=== PATIENT | female | born 1950 | race African-American/Black ===

== ENCOUNTER 2017-11-16 19:29 | Emergency (ER) | payer MEDICARE ==
[~2017-11-16] VITALS: Ht 165.1 cm; Wt 105.0 kg
[2017-11-16 19:31] VITALS: BP 178/81; PULSE 97; RESP 18; TEMP 98.1; O2SAT 97
[2017-11-16] MEDS ORDERED: METO25TA3 PO (20:25)
[2017-11-16] MEDS ORDERED: LISI10TA3 PO (20:25)
[2017-11-16] MEDS ORDERED: PLAV75TA29 PO (20:25)
[2017-11-16] MEDS ORDERED: ROSU1TAB8 PO (20:25)
[2017-11-16] MEDS ORDERED: KETOROLAC TROMETHAMINE 60 MG/2 ML (IM) VIAL IM ONE (21:15)
--- NOTE | 2017-11-16 21:20 | PD ---
HPI Chief Complaint: Edema Time Seen by Provider: 21:03 Travel History International Travel<30 days: No Contact w/Intl Traveler<30days: No Traveled to known affect area: No History of Present Illness HPI 67yo F with PMH pacemaker here with c/o right leg pain for 3 days. 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 Also has right knee swelling today and mild right calf pain. Denies any trauma, fever, chest pain, sob, n/v, abdominal pain, focal weakness or numbness. Pt is able to ambulate. PFSH Past Medical History Hx Anticoagulant Therapy: Yes (PLAVIX) Past Surgical History Cardiac Surgery: Yes (AICD FOR BRADYCARDIA) Social History Alcohol Use: No Tobacco Use: No Substance Use: No Allergies-Medications (Allergen,Severity, Reaction): Coded Allergies: Penicillins (Verified Allergy, Severe, Rash, 11/16/17) iodine (Verified Allergy, Severe, Rash, 11/16/17) Reported Meds & Prescriptions Reported Meds & Active Scripts Active Reported Rosuvastatin (Rosuvastatin Calcium) 20 Mg Tab 20 Mg PO DAILY Plavix (Clopidogrel Bisulfate) 75 Mg Tab 75 Mg PO DAILY Metoprolol Tartrate 25 Mg Tab 12.5 Mg PO BID Lisinopril 10 Mg Tab 10 Mg PO BID Review of Systems Except as stated in HPI: all other systems reviewed are Neg Physical Exam Narrative GENERAL: 67yo F in mild distress. SKIN: Focused skin assessment warm/dry. HEAD: Atraumatic. Normocephalic. EYES: Pupils equal and round. No scleral icterus. No injection or drainage. ENT: No nasal bleeding or discharge. Mucous membranes pink and moist. NECK: Trachea midline. No JVD. CARDIOVASCULAR: Regular rate and rhythm. No murmur appreciated. RESPIRATORY: No accessory muscle use. Clear to auscultation. Breath sounds equal bilaterally. GASTROINTESTINAL: Abdomen soft, non-tender, nondistended. MUSCULOSKELETAL: RLE: Mild edema right knee and ttp diffusely. No erythema. + TTP lateral thigh and popliteal fossa. DP 2+. Sensation intact. FROM right hip and knee. NEUROLOGICAL: Awake and alert. No obvious cranial nerve deficits. Motor grossly within normal limits. Normal speech. PSYCHIATRIC: Appropriate mood and affect; insight and judgment normal. Data Data Last Documented VS Vital Signs Date Time Temp Pulse Resp B/P (MAP) Pulse Ox O2 Delivery O2 Flow Rate FiO2 11/16/17 22:22 67 20 167/88 (114) 98 Room Air 11/16/17 19:31 98.1 Orders Orders Knee, Ltd (1 Or 2vws) (11/16/17 ) Us Leg Venous Doppler (11/16/17 ) Ketorolac Inj (Toradol Inj) (11/16/17 21:15) MDM Medical Decision Making Medical Screen Exam Complete: Yes Emergency Medical Condition: Yes Differential Diagnosis Musculoskeletal pain vs. DVT vs. arthritis Narrative Course 67yo F with right lower extremity pain after sitting in an uncomfortable chair for hours. Impression is more musculoskeletal. Denies any trauma, fever, focal weakness or numbness. Xray right knee negative. US RLE negative for DVT. Pt given toradol for pain and pain has improved. Pt is ambulating in the ED and wants to go home. Diagnosis Primary Impression: Right knee pain Qualified Codes: M25.561 - Pain in right knee Patient Instructions: General Instructions Departure Forms: Tests/Procedures Additional Instructions: Please follow up with your primary care physician or orthopedic surgeon if pain persists. Return to the ED if symptoms worsen. Med/Other Pt SpecificInfo: Prescription(s) given Scripts Acetaminophen (Tylenol) 325 Mg Tab 325 MG PO Q4H Y for PAIN SCALE 1 TO 4, #20 TAB 0 Refills Prov: CabreraAdriana stanford 11/17/17 Disposition: 01 DISCHARGE HOME Condition: Stable Adriana Cabrera DO Nov 16, 2017 21:20
--- NOTE | 2017-11-16 21:52 | RADRPT ---
EXAM DATE/TIME: 11/16/2017 21:28 [facility] COMPARISON: No previous studies available for comparison. INDICATIONS : Patient complains of right knee pain and swelling. No known injury. MEDICAL HISTORY : None. SURGICAL HISTORY : None. ENCOUNTER: Initial ACUITY: 1 day PAIN SCORE: 4/10 LOCATION: Right Knee FINDINGS: Two view examination of the right knee demonstrates no evidence of fracture or dislocation. Bony min eralization is normal. The suprapatellar soft tissues have a normal configuration without evidence o f suprapatellar distention. CONCLUSION: No gross bony abnormalities seen.. Alexander Finnegan MD on November 16, 2017 at 21:49 Board Certified Radiologist. This report was verified electronically.
--- NOTE | 2017-11-16 22:12 | RADRPT ---
EXAM DATE/TIME: 11/16/2017 21:48 [facility] COMPARISON: No previous studies available for comparison. INDICATIONS : Right leg pain. MEDICAL HISTORY : Bradycardia. Anticoagulant therapy. SURGICAL HISTORY : Internal defibrillator. ENCOUNTER: Initial ACUITY: 3 days PAIN SCORE: 5/10 LOCATION: Right leg. TECHNIQUE: Venous ultrasound of the leg was performed from the inguinal ligament to the proximal calf. Real-pavel e, color Doppler and spectral tracing, compression and augmentation techniques were used. FINDINGS: There is normal compressibility of the deep venous system from the inguinal region to the proximal ca lf. No echogenic clot is seen in the lumen of the common femoral, femoral, popliteal, and posterior tibial veins. There is a normal response of the venous system to proximal and distal augmentation an d respiration. CONCLUSION: Negative for deep venous thrombosis lower extremity. Alexander Finnegan MD on November 16, 2017 at 22:10 Board Certified Radiologist. This report was verified electronically.
[2017-11-16 22:22] VITALS: BP 167/88; PULSE 67; RESP 20; O2SAT 98
[2017-11-17] MEDS ORDERED: TYLE325T PO (00:39)
== END 2017-11-17 00:43 | disposition home or self-care (01) ==
LOC: NEPE 19:29
DX: M25.561 Pain in right knee (principal); Z79.02 Long term (current) use of antithrombotics/antiplatelets
CPT/HCPCS: 73560; 93971; 96372